=== PATIENT | male | born 1950 | race Asian ===

== ENCOUNTER → 2017-12-24 | Outpatient (CLI) | payer MEDICARE ==
[~2017-12-24] MED LIST: GADOBUTROL 1 MMOL/ML 10 ML VIAL IVP ONE
== END | disposition home or self-care (01) ==
LOC: RADMN 08:36
PROVIDERS: ATTEND Internal Medicine Nephrology
DX: N28.1 Cyst of kidney, acquired (principal); K76.89 Other specified diseases of liver; Z90.5 Acquired absence of kidney; Z85.528 Personal history of other malignant neoplasm of kidney
CPT/HCPCS: 74183; A9585